=== PATIENT | female | born 1955 | race Caucasian/White ===

== ENCOUNTER → 2021-04-04 13:28 | Outpatient (CLI) | payer OTHER, SELFPAY ==
[2021-04-04 15:14] LABS: COVID19 -Nasal RAPID Negative (Negative)
== END ==
PROVIDERS: PCP Nurse Practitioner Family; Visit Provider Surgery
DX: Z20.822 Contact with and (suspected) exposure to COVID-19 (principal); Z01.812 Encounter for preprocedural laboratory examination
CPT/HCPCS: 87635; C9803

== ENCOUNTER 2021-04-07 07:55 | Day surgery (SDC) | payer OTHER, SELFPAY ==
[2021-04-07 08:09] VITALS: BP 139/92; PULSE 122; RESP 18; TEMP 36.1; O2SAT 97; BMI 31.4
[2021-04-07] MEDS: LACTATED RINGERS 1,000 ML 200 ML IV (08:21)
--- NOTE | 2021-04-07 08:21 | P.HP_ITS ---
History of Present Illness History of Present Illness Date Patient Seen: 04/07/21 Time Patient Seen: 08:21 Chief complaint: SCREENING COLONOSCOPY Narrative: The patient presents for colorectal sreening. They have never had any previous examination for such. Sister has a recent diagnosis of colon cancer. nies any recent gastrointestinal symptoms. No nausea, vomiting, abdominal pain, loss of appetite, unexplained weight loss, change in bowel habits, diarrhea, c onstipation, melena, hematochezia, or bright red blood per rectum. Patient History Family & Social History Social History: household members spouse Tobacco & Substance use: Smoking Status Never smoker alcohol intake never Substance Use Type does not use Meds Home Medications and Allergies Home Medications Medication Instructions Recorded Confirmed Type sodium,potassium,mag sulfates 17.5 See Rx Instructions PO .COMPLEX 02/25/21 Rx gram-3.13 gram-1.6 gram oral soln #354 ml (Suprep Bowel Prep Kit) atorvastatin 20 mg tablet 20 mg 04/07/21 History levothyroxine 75 mcg tablet 75 mcg 04/07/21 History (Synthroid) Allergies Allergy/AdvReac Type Severity Reaction Status Date / Time No Known Drug Allergies Allergy Verified 04/07/21 08:08 Exam Vital Signs (past 8 hours): - 04/07/21 08:09 Temperature 97 F L Pulse Rate 122 H Respiratory Rate 18 Blood Pressure 139/92 H Pulse Oximetry 97 Oxygen Delivery Method Room Air Narrative Exam Narrative: Constitutional-She is oriented to person, place and time. No apparent distress Cardiovascular- regular rate, no peripheral edema Pulmonary-unlabored respiratory effort, no audible wheezing Abdominal-soft, non-tender, non-distended Musculoskeletal-no cyanosis or clubbing Neurological-nonfocal, normal strength throughout, Skin-warm and dry Assessment & Plan Assessment & Plan narrative: The patient requires colorectal screening and colonoscopy is recommended. Technical details were discussed. Risks, benefits, alternatives explained. Risks including but not limited to myocardial infarction, aspiration, bleeding, pain, missed lesion, incomplete examination, need for further radiographic studies, colonic perforation, and need for major abdominal surgery were discussed. All questions were answered to their satisfaction, and they are in agreement with this plan. Time Spent With Patient Critical Care time: I spent a total of [] minutes of critical care time on this patient's care today; this time is exclusive of procedural time.
[2021-04-07] MEDS: fentaNYL 250 MCG/5 ML INJ IV (08:32)
[2021-04-07] MEDS: MIDAZOLAM 5 MG/5 ML VIAL IV (08:32)
--- NOTE | 2021-04-07 08:52 | PM.OP.COLON ---
Operative Date/Time/Diagnoses Date of procedure: 04/07/21 Time of procedure: 08:52 Pre-op diagnosis: screening colonoscopy Post-op diagnosis: same Procedure & Clinicians Study performed: colonoscopy Same procedure as scheduled: Yes Indications: screening, family history of colon cancer Surgeon: Vimal Wall Procedure Notes Procedure in detail: Medications: Conscious sedation using 4mg IV midazolam and 100mcg IV of fentanyl The history and physical was performed/updated and the patient is ASA class is 2. The procedure was discussed in detail with the patient. Potential risks complications including infection, bleeding, missed diagnosis, perforation, need for surgery, and were explained. Their questions were answered and informed consent was obtained. Patient was brought to the procedure room and placed standard monitoring equipment. The patient's vital signs were monitored continuously throughout the entire procedure. Prior to starting time-out was performed. The patient was placed in the left lateral recumbent position. Procedural sedation was administered. Examination began with a thorough inspection of the perianal area there was no evidence of fissures, fistulae, external hemorrhoids or cutaneous malignancy. The colonoscopy scope was then placed into the anal canal and was advanced to the cecum, which was identified by the ileocecal valve, the appendiceal orifice and the confluence of the taenia. The scope was then slowly withdrawn examining colon thoroughly in all directions, irrigating it of any residual stool. FINDINGS 1. No masses or polyps 2. Sigmoid diverticulosis The patient tolerated the procedure well. They will be discharged once criteria are met. The prep was of good/excellent quality. The withdrawl time was 7 minutes. The sedation time was 20 minutes. Complications: none Impression: Normal colonoscopy Post-procedure Recommendations: Colonoscopy in 5 years (Family history of colon cancer) Disposition: same day surgery
[2021-04-07 08:56] VITALS: BP 115/87; PULSE 97; RESP 14; TEMP 36.3; O2SAT 94
[2021-04-07 09:01] VITALS: BP 112/77; PULSE 87; RESP 12; O2SAT 92
[2021-04-07 09:06] VITALS: PULSE 98; RESP 14; O2SAT 98
[2021-04-07 09:11] VITALS: BP 126/79; PULSE 95; RESP 15; TEMP 36.1; O2SAT 96
[2021-04-07 09:41] VITALS: BP 116/70; PULSE 93; RESP 16; O2SAT 97
== END 2021-04-07 09:47 | disposition home or self-care (01) ==
PROVIDERS: PCP Nurse Practitioner Family; Referring Provider Surgery; Visit Provider Surgery
PROC: 0DJD8ZZ Inspection of Lower Intestinal Tract, Via Natural or Artificial Opening Endoscopic (ICD-10-PCS; CPT 45378; principal; 2021-04-07 08:30)
DX: Z12.11 Encounter for screening for malignant neoplasm of colon (principal); Z80.0 Family history of malignant neoplasm of digestive organs; K57.30 Diverticulosis of large intestine without perforation or abscess without bleeding
CPT/HCPCS: G0105; 99152; J2250; J3010